=== PATIENT | male | born 1945 | race Caucasian/White ===

== ENCOUNTER 2019-02-08 10:10 | Emergency (ER) | payer SELFPAY ==
[2019-02-08] MEDS ORDERED: Fluorescein Opthalmic Strip ONE (10:17)
[2019-02-08] MEDS ORDERED: Proparacaine 0.5% Opth 15 ML BOT ONE (10:18)
== END 2019-02-08 11:00 | disposition home or self-care (01) ==
LOC: SCSER 10:10
DX: T15.11XA Foreign body in conjunctival sac, right eye, initial encounter (principal)
CPT/HCPCS: 99283

== ENCOUNTER 2019-10-31 19:00 | Outpatient (CLI) | payer MEDICARE | END 2019-10-31 19:01 | disposition home or self-care (01) | LOC: SLEEPLAB 19:00 | PROVIDERS: ATTEND Internal Medicine Critical Care Medicine | DX: G47.33 Obstructive sleep apnea (adult) (pediatric) (principal) | CPT/HCPCS: 95806 ==

== ENCOUNTER 2024-11-16 08:45 | Outpatient (CLI) | payer MEDICARE, OTHER | END 2024-11-16 08:46 | disposition home or self-care (01) | LOC: PET 08:45 | PROVIDERS: ATTEND Psychiatry & Neurology Neuromuscular Medicine | DX: G31.84 Mild cognitive impairment of uncertain or unknown etiology (principal); R45.86 Emotional lability | CPT/HCPCS: 78803; A9552 ==